=== PATIENT | female | born 1960 | race African-American/Black ===

== ENCOUNTER 2020-10-29 11:15 | Emergency (ER) | payer MEDICAID ==
[~2020-10-29] VITALS: Ht 180.3 cm; Wt 58.0 kg
[~2020-10-29 11:15] MED LIST: AMLO10TA80; AP25; ATEN50TA; BACL-141; BENA40TA9; CLOT15CR63; HYDR453.; HYDR50TA55; IBUP-1008
[2020-10-29 11:36] VITALS: BP 127/86
[2020-10-29] MEDS ORDERED: HYDROCODONE/ACETAMINOPHEN 5/325MG TABLET PO ONE (12:00)
== END 2020-10-29 15:01 | disposition home or self-care (01) ==
LOC: EDBD 11:15 → ER 11:15
DX: S20.213A Contusion of bilateral front wall of thorax, initial encounter (principal); M54.5 Low back pain; I10 Essential (primary) hypertension; W01.0XXA Fall on same level from slipping, tripping and stumbling without subsequent striking against object, initial encounter; Y93.89 Activity, other specified; Y92.89 Other specified places as the place of occurrence of the external cause; Z85.9 Personal history of malignant neoplasm, unspecified
CPT/HCPCS: 71111; 72100; 99284

== ENCOUNTER 2021-01-07 14:49 | Inpatient (IN) | payer MEDICAID ==
[~2021-01-07] VITALS: Ht 167.6 cm; Wt 64.9 kg
[2021-01-07 16:12] LABS: BASOPHILS % 0.9 % (0.0-2.0); EOSINOPHILS % 3.4 % (0.0-5.0); HEMATOCRIT. 38.7 % (36.0-48.0); HEMOGLOBIN. 12.7 g/dL (12.0-16.0); MEAN CORPUSCULAR HEMOGLOBIN 30.9 pg (28.0-32.0); MEAN CORPUSCULAR VOLUME 93.8 fL (81.0-99.0); MONOCYTES % 7.4 % (2.0-8.0); NEUTROPHILS % 52.3 % (40.0-76.0); PLATELET 166 x1000/uL (130-400); RED BLOOD CELL COUNT 4.12 mill/uL (4.2-5.4)
[2021-01-07 16:19] LABS: CHLORIDE 105 mEq/L (98-107)
[2021-01-07 16:26] LABS: D-DIMER < 0.19 mg/L FEU (<0.50); PROTHROMBIN TIME 10.3 sec (9.6-11.0)
[2021-01-07] MEDS ORDERED: ASPIRIN 81MG TABLET PO ONE (17:45)
[2021-01-07] MEDS ORDERED: ONDANSETRON HCL 4MG/2ML INJ IV PRN (18:30)
[2021-01-07 19:55] LABS: CLARITY URINE CLEAR (CLEAR); COLOR URINE YELLOW (YELLOW); KETONES URINE NEGATIVE (NEGATIVE); LEUKOCYTE ESTERASE URINE 2+ (NEGATIVE); NITRITE URINE NEGATIVE (NEGATIVE); OCCULT BLOOD URINE NEGATIVE (NEGATIVE); PROTEIN URINE NEGATIVE (NEGATIVE); SPECIFIC GRAVITY URINE 1.008 (1.005-1.030); UROBILINOGEN URINE 0.2 E.U./dL (0.2-1.0)
[2021-01-07 20:29] LABS: *AMPHETAMINES SCREEN URINE NEGATIVE (NEGATIVE); *BARBITURATES SCREEN URINE NEGATIVE (NEGATIVE); *BENZODIAZEPINES SCREEN URINE NEGATIVE (NEGATIVE); *COCAINE SCREEN URINE NEGATIVE (NEGATIVE)
[2021-01-07 20:30] LABS: CANNABINOID URINE SCREEN PRESUMTIVE POSITIVE (NEGATIVE); METHADONE URINE SCREEN NEGATIVE (NEGATIVE); OPIATES URINE SCREEN NEGATIVE (NEGATIVE); PHENCYCLIDINE URINE SCREEN NEGATIVE (NEGATIVE)
[2021-01-08] VITALS (7 sets, daily range): BP systolic 110–136; BP diastolic 69–89
[2021-01-08] MEDS: ACETAMINOPHEN 325MG TABLET PO PRN ×2 (02:41→22:48)
[2021-01-08] MEDS: ASPIRIN 81MG TABLET PO SCH (09:26)
[2021-01-08] MEDS ORDERED: NON FORMULARY PATIENT HOME MED PO SCH (13:15)
[2021-01-08] MEDS: AMLODIPINE 10MG TABLET PO SCH (13:58)
[2021-01-08] MEDS: CEFTRIAXONE 1,000 MG in DEXTROSE 5% WATER 50 ML IV SCH (15:19)
[2021-01-08] MEDS: ENOXAPARIN 40MG/0.4ML SYR SUBCUT SCH (16:39)
[2021-01-09] VITALS: BP 113/80
[2021-01-09 04:00] VITALS: BP 116/89
[2021-01-09 08:00] VITALS: BP 130/90
[2021-01-09] MEDS ORDERED: BENAZEPRIL 10MG TABLET PO SCH (09:00)
[2021-01-09] MEDS: AMLODIPINE 10MG TABLET PO SCH (09:14)
[2021-01-09] MEDS: CEFTRIAXONE 1,000 MG in DEXTROSE 5% WATER 50 ML IV SCH (09:14)
[2021-01-09] MEDS: ASPIRIN 81MG TABLET PO SCH (09:14)
[2021-01-09 12:00] VITALS: BP 117/81
[2021-01-09 15:10] VITALS: BP 117/81
[2021-01-09] MEDS: ENOXAPARIN 40MG/0.4ML SYR SUBCUT SCH (15:10)
[2021-01-09 16:00] VITALS: BP 107/68
== END 2021-01-09 17:18 | disposition home or self-care (01) | DRG 203 ==
LOC: ER 14:49 → MICUSO 17:14 → EDBEDREQTM 17:25 → EDBEDREQ 17:25 → 5WST 22:59
PROVIDERS: ADMIT Internal Medicine; ATTEND Internal Medicine
DX: M94.0 Chondrocostal junction syndrome [Tietze] (principal); I10 Essential (primary) hypertension; N39.0 Urinary tract infection, site not specified; F12.90 Cannabis use, unspecified, uncomplicated; Z88.8 Allergy status to other drugs, medicaments and biological substances; Z91.018 Allergy to other foods; Z79.899 Other long term (current) drug therapy; Z92.21 Personal history of antineoplastic chemotherapy; Z85.3 Personal history of malignant neoplasm of breast; Z82.49 Family history of ischemic heart disease and other diseases of the circulatory system; D72.819 Decreased white blood cell count, unspecified
CPT/HCPCS: 36415; 71045; 80053; 80061; 80305; 81003; 83880; 84443; 84484; 85025; 85379; 93005; 93306; 93970; 99285; J0696; J1650; J7060

== ENCOUNTER 2021-02-10 15:08 | Emergency (ER) | payer MEDICAID ==
[~2021-02-10] VITALS: Ht 180.3 cm; Wt 62.0 kg
[2021-02-10] MEDS: ACETAMINOPHEN WITH CODEINE 300/30MG TABLET PO STA (19:36)
[2021-02-10 20:20] LABS: BASOPHILS % 1.4 % (0.0-2.0); EOSINOPHILS % 3.6 % (0.0-5.0); HEMATOCRIT. 36.8 % (36.0-48.0); LYMPHOCYTES % 39.6 % (20.0-50.0); MEAN CORPUSCULAR VOLUME 95.2 fL (81.0-99.0); MEAN PLATELET VOLUME 9.6 fl (7.4-10.4); MONOCYTES % 5.4 % (2.0-8.0); PLATELET 156 x1000/uL (130-400); RED BLOOD CELL COUNT 3.87 mill/uL (4.2-5.4); RED CELL DISTRIBUTION WIDTH 13.8 % (11.6-14.6)
[2021-02-10 20:27] LABS: CHLORIDE 108 mEq/L (98-107)
[2021-02-10 20:30] LABS: PROTHROMBIN TIME 10.9 sec (9.6-11.0)
[2021-02-10 22:19] VITALS: BP 118/84
== END 2021-02-10 22:19 | disposition home or self-care (01) ==
LOC: ER 15:39
DX: K80.50 Calculus of bile duct without cholangitis or cholecystitis without obstruction (principal); I10 Essential (primary) hypertension; Z88.0 Allergy status to penicillin; Z88.6 Allergy status to analgesic agent; Z91.018 Allergy to other foods; Z79.899 Other long term (current) drug therapy
CPT/HCPCS: 36415; 76705; 80053; 85025; 99284

== ENCOUNTER 2021-05-11 13:17 | Emergency (ER) | payer MEDICAID ==
[~2021-05-11] VITALS: Ht 177.8 cm; Wt 70.0 kg
[2021-05-11 16:31] VITALS: BP 123/69
== END 2021-05-11 16:32 | disposition home or self-care (01) ==
LOC: ER 13:17
DX: S30.0XXA Contusion of lower back and pelvis, initial encounter (principal); S40.011A Contusion of right shoulder, initial encounter; S50.01XA Contusion of right elbow, initial encounter; W01.0XXA Fall on same level from slipping, tripping and stumbling without subsequent striking against object, initial encounter; Y93.89 Activity, other specified; Y92.811 Bus as the place of occurrence of the external cause; J40 Bronchitis, not specified as acute or chronic; I10 Essential (primary) hypertension; Z85.9 Personal history of malignant neoplasm, unspecified; Z87.19 Personal history of other diseases of the digestive system
CPT/HCPCS: 72100; 73030; 73080; 99284

== ENCOUNTER 2022-05-07 18:34 | Emergency (ER) | payer MEDICAID ==
[~2022-05-07] VITALS: Ht 180.3 cm; Wt 61.0 kg
[~2022-05-07 18:34] MED LIST changes: -BENA40TA9; +BENA40TA91
[2022-05-07 19:03] VITALS: BP 130/90
[2022-05-07] MEDS ORDERED: ACETAMINOPHEN 325MG TABLET PO ONE (21:15)
[2022-05-07] MEDS ORDERED: TOPUD MT (22:11)
== END 2022-05-08 03:40 | disposition home or self-care (01) ==
LOC: ER 18:34
DX: M25.562 Pain in left knee (principal); M25.561 Pain in right knee; I10 Essential (primary) hypertension; Z88.0 Allergy status to penicillin; Z88.6 Allergy status to analgesic agent; Z91.018 Allergy to other foods; W01.0XXA Fall on same level from slipping, tripping and stumbling without subsequent striking against object, initial encounter; Y93.89 Activity, other specified; Y92.89 Other specified places as the place of occurrence of the external cause; Y99.8 Other external cause status
CPT/HCPCS: 73562; 99283

== ENCOUNTER 2024-01-05 10:06 | Emergency (ER) | payer MEDICAID ==
[~2024-01-05] VITALS: Ht 175.3 cm; Wt 68.0 kg
[~2024-01-05 10:06] MED LIST changes: +TOPUD MT
[2024-01-05 10:15] VITALS: TEMP 97.9; O2SAT 99
[2024-01-05] MEDS ORDERED: TOPUD MT (12:18)
[2024-01-05 12:30] VITALS: BP 142/85; PULSE 89; RESP 18
[2024-01-05] MEDS: HYDROCODONE/ACETAMINOPHEN 5/325MG TABLET PO ONE (12:30)
== END 2024-01-05 14:41 | disposition home or self-care (01) ==
LOC: ER 10:30
DX: M25.562 Pain in left knee (principal); M25.561 Pain in right knee; R51.9 Headache, unspecified; I10 Essential (primary) hypertension; Z91.018 Allergy to other foods; Z88.6 Allergy status to analgesic agent; Z88.0 Allergy status to penicillin; Z79.899 Other long term (current) drug therapy; W01.0XXA Fall on same level from slipping, tripping and stumbling without subsequent striking against object, initial encounter; Y93.89 Activity, other specified; Y92.89 Other specified places as the place of occurrence of the external cause; Y99.8 Other external cause status
CPT/HCPCS: 73560; 99284

== ENCOUNTER 2024-09-23 11:55 | Emergency (ER) | payer MEDICARE, MEDICAID ==
[~2024-09-23] VITALS: Ht 167.6 cm; Wt 72.5 kg
[2024-09-23 12:13] VITALS: BP 140/91; PULSE 90; RESP 16; TEMP 98; O2SAT 99
[2024-09-23] MEDS: ACETAMINOPHEN 325MG TABLET PO ONE (13:29)
== END 2024-09-23 13:35 | disposition home or self-care (01) ==
LOC: ER 11:55
DX: S09.90XA Unspecified injury of head, initial encounter (principal); I10 Essential (primary) hypertension; Z98.890 Other specified postprocedural states; Z88.8 Allergy status to other drugs, medicaments and biological substances; Z88.6 Allergy status to analgesic agent; Z88.0 Allergy status to penicillin; Z79.899 Other long term (current) drug therapy; X58.XXXA Exposure to other specified factors, initial encounter; Y93.89 Activity, other specified; Y92.89 Other specified places as the place of occurrence of the external cause; Y99.8 Other external cause status
CPT/HCPCS: 99284

== ENCOUNTER 2025-03-25 10:55 | Emergency (ER) | payer MEDICARE, MEDICAID ==
[~2025-03-25] VITALS: Ht 177.8 cm; Wt 75.0 kg
[2025-03-25 11:02] VITALS: O2SAT 97
[2025-03-25] MEDS ORDERED: IBUPROFEN 600MG TABLET PO STA (12:07)
[2025-03-25] MEDS ORDERED: ACETAMINOPHEN 325MG TABLET PO STA (12:07)
[2025-03-25] MEDS ORDERED: IBUP-2437 MT (12:20)
[2025-03-25] MEDS ORDERED: TOPUD MT (12:20)
[2025-03-25 12:36] VITALS: BP 115/77; PULSE 69; RESP 16; TEMP 36.9; O2SAT 100
== END 2025-03-25 12:37 | disposition home or self-care (01) ==
LOC: ER 10:55
DX: R51.9 Headache, unspecified (principal); M25.561 Pain in right knee; M25.562 Pain in left knee; M19.90 Unspecified osteoarthritis, unspecified site; I10 Essential (primary) hypertension; Z98.890 Other specified postprocedural states; Z79.899 Other long term (current) drug therapy; Z88.0 Allergy status to penicillin; Z88.6 Allergy status to analgesic agent; Z88.8 Allergy status to other drugs, medicaments and biological substances
CPT/HCPCS: 99282